=== PATIENT | male | born 2000 ===

== ENCOUNTER 2024-11-26 12:59 | Emergency (ER) | payer SELFPAY ==
[~2024-11-26] VITALS: Ht 152.4 cm; Wt 63.5 kg
[2024-11-26 13:23] VITALS: TEMP 36.8; O2SAT 98
[2024-11-26 14:08] LABS: BASOPHILS % 0.3 % (0.0-2.0); EOSINOPHILS % 3.1 % (0.0-5.0); HEMATOCRIT. 42.2 % (42.0-52.0); HEMOGLOBIN. 14.3 g/dL (14.0-18.0); LYMPHOCYTES % 49.7 % (20.0-50.0); MEAN PLATELET VOLUME 9.1 fl (7.4-10.4); MONOCYTES % 8.9 % (2.0-8.0); NEUTROPHILS % 38.0 % (40.0-76.0); PLATELET 191 x1000/uL (130-400); RED BLOOD CELL COUNT 5.15 mill/uL (4.7-6.1); RED CELL DISTRIBUTION WIDTH 12.5 % (11.6-14.6)
[2024-11-26 14:27] LABS: CREATININE 0.9 mg/dL (0.6-1.3); UREA NITROGEN BLOOD 16 mg/dL (9-23)
[2024-11-26 15:21] LABS: INR 1.1
[2024-11-26 15:23] LABS: ETHANOL BLOOD < 10 mg/dL (<10)
[2024-11-26 15:24] LABS: ASPARTATE AMINOTRANSFERASE 38 IU/L (<34)
[2024-11-26 15:25] LABS: BILIRUBIN DIRECT 0.2 mg/dL (<=3.0); BILIRUBIN TOTAL 0.9 mg/dL (0.1-1.0); PROTEIN TOTAL 6.7 g/dL (6.0-8.3)
[2024-11-26] MEDS ORDERED: SUCR1TAB MT (16:39)
[2024-11-26] MEDS ORDERED: OMEP-265 MT (16:39)
[2024-11-26] MEDS: ONDANSETRON 4MG ODT PO ONE (17:12)
[2024-11-26] MEDS: FAMOTIDINE 20MG TABLET PO ONE (17:12)
[2024-11-26 17:19] VITALS: BP 106/60; PULSE 69; RESP 14; O2SAT 97
== END 2024-11-26 17:22 | disposition home or self-care (01) ==
LOC: ER 12:59
DX: K29.70 Gastritis, unspecified, without bleeding (principal); Z59.71 Insufficient health insurance coverage; Z79.899 Other long term (current) drug therapy
CPT/HCPCS: 80076; 80048; 80320; 83690; 83735; 85025; 85610; 85730; 36415; 74018; 99284; Q0162; G0480